=== PATIENT | female | born 1950 | race Caucasian/White ===

== ENCOUNTER 2019-07-02 17:23 | Emergency (ER) | payer MEDICARE, BC, OTHER ==
--- NOTE | 2019-07-02 18:17 | EDM.PDOC ---
ED HPI GENERAL MEDICAL PROBLEM - General Chief Complaint: Respiratory Problem Stated Complaint: SOB Time Seen by Provider: 07/02/19 18:14 Source of Information: Reports: Patient History Limitations: Reports: No Limitations - History of Present Illness INITIAL COMMENTS - FREE TEXT/NARRATIVE: pt has been having sob. She did have a vertual visit and was placed on predisone and she got alot better. She felt like a new person Onset: Gradual Duration: Day(s): Location: Reports: Chest Associated Symptoms: Reports: Cough, Shortness of Breath - Related Data Allergies Allergy/AdvReac Type Severity Reaction Status Date / Time Penicillins Allergy Cannot Verified 07/02/19 18:18 Remember Home Meds: Home Meds Hydrochlorothiazide 25 mg PO DAILY 10/02/15 [History] Albuterol [Ventolin HFA] 1 - 2 puff INH Q4H PRN 07/02/19 [History] Fluticasone Propionate [Flovent HFA 110 MCG] 2 puff INH BID 07/02/19 [History] Past Medical History Cardiovascular History: Reports: Hypertension Respiratory History: Reports: Pneumonia, Recurrent, Sleep Apnea TREE CHIPPER History: Reports: Prolapsed Uterus Other TREE CHIPPER History: tubal ligation - Past Surgical History GI Surgical History: Reports: Colonoscopy Social & Family History - Family History Family Medical History: Noncontributory - Tobacco Use Smoking Status *Q: Never Smoker - Caffeine Use Caffeine Use: Reports: Coffee - Recreational Drug Use Recreational Drug Use: No ED ROS GENERAL - Review of Systems Review Of Systems: See Below Constitutional: Reports: No Symptoms HEENT: Reports: No Symptoms Respiratory: Reports: Shortness of Breath, Cough Cardiovascular: Reports: No Symptoms Endocrine: Reports: No Symptoms GI/Abdominal: Reports: No Symptoms : Reports: No Symptoms Musculoskeletal: Reports: No Symptoms ED EXAM, GENERAL - Physical Exam Exam: See Below Free Text/Narrative:: pt arrived with sob. She had a vertual visit and was placed on flovent and predisone and she felt like a new person. She is out of the predisone and she is no sob. She does not have chest pain. She has had some wheezing problems in the past. She has not had a fever. Exam Limited By: No Limitations General Appearance: Alert, Anxious, Mild Distress Ears: Normal TMs Nose: Normal Inspection Throat/Mouth: Normal Inspection Head: Atraumatic Neck: Normal Inspection Respiratory/Chest: Decreased Breath Sounds Cardiovascular: Regular Rate, Rhythm GI/Abdominal: Soft, Non-Tender (Female) Exam: Deferred Rectal (Female) Exam: Deferred Back Exam: Normal Inspection Extremities: Normal Inspection Neurological: Alert, Oriented, Normal Cognition Psychiatric: Anxious Course - Vital Signs Last Recorded V/S: Last Vital Signs Temp 36.0 C L 07/02/19 17:40 Pulse 67 07/02/19 18:37 Resp 16 07/02/19 17:40 BP 123/71 07/02/19 18:37 Pulse Ox 98 07/02/19 18:37 - Orders/Labs/Meds Orders: Active Orders 24 hr Category Date Time Status RT Aerosol Therapy [RC] ASDIRECTED Care 07/02/19 18:41 Active DD [D-DIMER QUANTITATIVE] [COAG] Stat Lab 07/02/19 18:05 Received PRO B-TYPE NATRIUR PEPT,BNPPRO [CHEM] Urgent Lab 07/02/19 18:05 Received Triamcinolone Acetonide [Kenalog-40] Med 07/02/19 19:12 Ordered 60 mg IM ASDIRECTED PRN Medication Orders Triamcinolone Acetonide (Kenalog-40) 60 mg IM ASDIRECTED PRN PRN Reason: Shortness of Breath Labs: Laboratory Tests 07/02/19 07/02/19 Range/Units 18:05 18:05 WBC 10.3 (4.5-11.0) K/uL RBC 4.26 (3.30-5.50) M/uL Hgb 13.0 (12.0-15.0) g/dL Hct 39.5 (36.0-48.0) % MCV 93 (80-98) fL MCH 31 (27-31) pg MCHC 33 (32-36) % Plt Count 292 (150-400) K/uL Neut % (Auto) 67 H (36-66) % Lymph % (Auto) 21 L (24-44) % [place] % (Auto) 7 H (2-6) % Eos % (Auto) 4 (2-4) % Baso % (Auto) 0 (0-1) % Sodium 142 (140-148) mmol/L Potassium 3.5 L (3.6-5.2) mmol/L Chloride 103 (100-108) mmol/L Carbon Dioxide 30 (21-32) mmol/L Anion Gap 12.5 (5.0-14.0) mmol/L BUN 19 H (7-18) mg/dL Creatinine 0.7 (0.6-1.0) mg/dL Est Cr Clr Drug Dosing 56.78 mL/min Estimated GFR (MDRD) > 60 (>60) Glucose 93 (74-106) mg/dL Calcium 9.6 (8.5-10.1) mg/dL Total Bilirubin 0.6 (0.2-1.0) mg/dL AST 16 (15-37) U/L ALT 22 (12-78) U/L Alkaline Phosphatase 89 (46-116) U/L Total Protein 6.9 (6.4-8.2) g/dL Albumin 3.8 (3.4-5.0) g/dL Globulin 3.1 (2.3-3.5) g/dL Albumin/Globulin Ratio 1.2 (1.2-2.2) Meds: Medications Generic Name Dose Route Start Last Admin Trade Name Freq PRN Reason Stop Dose Admin Triamcinolone Acetonide 60 mg 07/02/19 19:12 Kenalog-40 IM ASDIRECTED PRN Shortness of Breath Discontinued Medications Generic Name Dose Route Start Last Admin Trade Name Freq PRN Reason Stop Dose Admin Albuterol 2.5 mg 07/02/19 18:40 Proventil Neb Soln NEB 07/02/19 18:41 ONETIME ONE Methylprednisolone Sodium Succinate 125 mg 07/02/19 18:39 Solu-Medrol IM 07/02/19 18:40 ONETIME ONE - Re-Assessments/Exams Free Text/Narrative Re-Assessment/Exam: 07/02/19 18:49 pt arrived with sob. She has not had a feveer/ 07/02/19 19:17 chest xray was neg--chronic changes, labs looked good. Pt has good oxgenation. Pt needs to be followed by Dr Curry. She needs her pulmonary funtion studies. Departure - Departure Time of Disposition: 19:18 Disposition: Home, Self-Care 01 Condition: Fair Clinical Impression: Bronchospasm - Discharge Information Referrals: Qian Curry MD [Primary Care Provider] - Forms: ED Department Discharge Care Plan Goals: use albuterol inhaler regularly tid, use th flovent as ordered predisone 10mg 1 tab daily for 1 week--pt had a kenalog injection in ER. appt with Dr Curry in 1 week, not vertual. Sepsis Event Note - Evaluation Sepsis Screening Result: No Definite Risk - Focused Exam Vital Signs: Vital Signs Temp Pulse Resp BP Pulse Ox 07/02/19 18:37 67 123/71 98 07/02/19 17:40 36.0 C L 87 16 151/79 H 97 07/02/19 17:35 36.0 C L 87 16 151/79 H 97 Date Exam was Performed: 07/02/19 Time Exam was Performed: 19:13 - My Orders Last 24 Hours: My Active Orders 07/02/19 18:05 DD [D-DIMER QUANTITATIVE] [COAG] Stat PRO B-TYPE NATRIUR PEPT,BNPPRO [CHEM] Urgent 07/02/19 18:41 RT Aerosol Therapy [RC] ASDIRECTED 07/02/19 19:12 Triamcinolone Acetonide [Kenalog-40] 60 mg IM ASDIRECTED PRN - Assessment/Plan Last 24 Hours: My Active Orders 07/02/19 18:05 DD [D-DIMER QUANTITATIVE] [COAG] Stat PRO B-TYPE NATRIUR PEPT,BNPPRO [CHEM] Urgent 07/02/19 18:41 RT Aerosol Therapy [RC] ASDIRECTED 07/02/19 19:12 Triamcinolone Acetonide [Kenalog-40] 60 mg IM ASDIRECTED PRN
[2019-07-02] MEDS ORDERED: methylPREDNISolone Sodium Succinate 125 MG/2 ML SDV IM ONE (18:39)
[2019-07-02] MEDS ORDERED: Albuterol 0.083% 2.5 MG/3 ML Neb Soln NEB ONE (18:40)
--- NOTE | 2019-07-02 19:05 | CRLCR ---
INDICATION: SOB TECHNIQUE: Chest 2 views. COMPARISON: None. FINDINGS: Cardiovascular and mediastinum: Heart size and vasculature are normal in caliber and appearance. Mediastinum is within normal limits. Lungs and pleural spaces: Lungs are clear. No sign of infiltrate or mass. No sign of pleural effusion. No pneumothorax. Bones and soft tissues: No significant findings. IMPRESSION: Unremarkable chest. Dictated by: Vince Granger MD @ 07/02/2019 19:04:25 (Electronically Signed)
[2019-07-02] MEDS ORDERED: Triamcinolone Acetonide 40 MG/ML 1 ML SDV IM PRN (19:12)
[2019-07-02 19:21] VITALS: BP 124/75; PULSE 73
== END 2019-07-02 19:38 | disposition home or self-care (01) ==
LOC: JP.ED 17:23
DX: J98.01 Acute bronchospasm (principal); I10 Essential (primary) hypertension; Z88.0 Allergy status to penicillin; Z79.899 Other long term (current) drug therapy
CPT/HCPCS: 36415; 71046; 80053; 83880; 85025; 85379; 94640; 96372; 99284; 99285; J3301

== ENCOUNTER 2019-07-22 00:30 | Emergency (ER) | payer MEDICARE, BC, OTHER ==
--- NOTE | 2019-07-22 01:01 | EDM.PDOC ---
ED HPI GENERAL MEDICAL PROBLEM - General Chief Complaint: Chest Pain Stated Complaint: SOB,CHEST PRESSURE Time Seen by Provider: 07/22/19 00:50 Source of Information: Reports: Patient History Limitations: Reports: No Limitations - History of Present Illness INITIAL COMMENTS - FREE TEXT/NARRATIVE: Patient presents from home describing sudden onset central chest heaviness noticed approximately 2300 hrs. on July 20. She had been asleep for approximately 2 hours and awoke suddenly feeling short of breath and also have the chest pressure described. She has sleep apnea and uses CPAP. She has not had a sensation like this before. She has a past history of mitral stenosis which was moderate in its degree several years ago at the time of elective surgery but based on ongoing shortness of breath over the last month or so, an echocardiogram was done which now shows severe mitral stenosis. She had a virtual appointment with an [facility] inventory and pricing associate on Monday, July 18, and after completing an angiogram and transesophageal echocardiogram, she will be referred to the [facility] reportedly. Based on her symptoms when she awoke, she is concerned something new was happening to her heart but does admit that she is extremely worried about everything that has been described to her recently. Onset: Today, Sudden Severity: Mild Improves with: Reports: None Worsens with: Reports: None Context: Reports: Other (Sleeping) Associated Symptoms: Reports: No Other Symptoms Upper Chest Pain Score (Numeric/FACES): 8 - Related Data Allergies Allergy/AdvReac Type Severity Reaction Status Date / Time Penicillins Allergy Cannot Verified 07/22/19 00:44 Remember Home Meds: Home Meds Hydrochlorothiazide 25 mg PO DAILY 10/02/15 [History] Albuterol [Ventolin HFA] 1 - 2 puff INH Q4H PRN 07/02/19 [History] Fluticasone Propionate [Flovent HFA 110 MCG] 2 puff INH BID 07/02/19 [History] Aspirin [Adult Low Dose Aspirin EC] 81 mg PO DAILY 07/22/19 [History] Past Medical History Cardiovascular History: Reports: Angina, Heart Murmur, Hypertension, Other (See Below) Other Cardiovascular History: leaky valve. echo Respiratory History: Reports: Pneumonia, Recurrent, Sleep Apnea Other Respiratory History: c-pap CHILD CARE SUPERVISOR History: Reports: Prolapsed Uterus Other CHILD CARE SUPERVISOR History: tubal ligation - Past Surgical History GI Surgical History: Reports: Colonoscopy Female Surgical History: Reports: Hysterectomy Social & Family History - Family History Family Medical History: Noncontributory - Caffeine Use Caffeine Use: Reports: Coffee ED ROS GENERAL - Review of Systems Review Of Systems: See Below Constitutional: Reports: Weakness. Denies: Fever HEENT: Reports: No Symptoms Respiratory: Reports: Shortness of Breath. Denies: Wheezing Cardiovascular: Reports: Dyspnea on Exertion GI/Abdominal: Reports: No Symptoms : Reports: No Symptoms Musculoskeletal: Reports: No Symptoms Skin: Reports: No Symptoms Psychiatric: Reports: Anxiety ED EXAM, GENERAL - Physical Exam Exam: See Below Free Text/Narrative:: This is an adult female lying supine on the bed in room 10. She has an anxious affect to her voice. Exam Limited By: No Limitations General Appearance: Anxious, Mild Distress Eye Exam: Bilateral Eye: EOMI, Normal Inspection Throat/Mouth: Normal Inspection Head: Atraumatic Neck: Supple, Non-Tender Respiratory/Chest: Lungs Clear, Normal Breath Sounds, Other (Tachypnea) Cardiovascular: Regular Rate, Rhythm, Systolic Murmur Extremities: Normal Inspection, No Pedal Edema Neurological: Alert, Oriented Psychiatric: Anxious EKG INTERPRETATION EKG Date: 07/22/19 Time: 00:32 Rhythm: NSR Rate (Beats/Min): 67 [place]: LAD-Left [place] Deviation P-Wave: Present QRS: Normal ST-T: Normal QT: Normal EKG Interpretation Comments: Sinus rhythm without acute ischemic or infarction changes. Course - Vital Signs Last Recorded V/S: Last Vital Signs Temp 36.2 C 07/22/19 00:40 Pulse 60 07/22/19 02:15 Resp 16 07/22/19 02:15 BP 98/58 L 07/22/19 02:15 Pulse Ox 96 07/22/19 02:15 - Orders/Labs/Meds Orders: Active Orders 24 hr Category Date Time Status EKG Documentation Completion [RC] ASDIRECTED Care 07/22/19 01:06 Active Chest 2V [CR] Stat Exams 07/22/19 01:07 Taken Saline Lock Insert [OM.PC] Routine Oth 07/22/19 01:07 Ordered EKG 12 Lead [EK] Routine Ther 07/22/19 01:06 Ordered Labs: Laboratory Tests 07/22/19 07/22/19 Range/Units 01:20 01:20 WBC 9.6 (4.5-11.0) K/uL RBC 4.27 (3.30-5.50) M/uL Hgb 13.2 (12.0-15.0) g/dL Hct 39.4 (36.0-48.0) % MCV 92 (80-98) fL MCH 31 (27-31) pg MCHC 34 (32-36) % Plt Count 268 (150-400) K/uL Neut % (Auto) 78 H (36-66) % Lymph % (Auto) 11 L (24-44) % [place] % (Auto) 7 H (2-6) % Eos % (Auto) 3 (2-4) % Baso % (Auto) 0 (0-1) % Sodium 141 (140-148) mmol/L Potassium 2.8 L* (3.6-5.2) mmol/L Chloride 102 (100-108) mmol/L Carbon Dioxide 29 (21-32) mmol/L Anion Gap 12.8 (5.0-14.0) mmol/L BUN 24 H (7-18) mg/dL Creatinine 0.8 (0.6-1.0) mg/dL Est Cr Clr Drug Dosing 49.01 mL/min Estimated GFR (MDRD) > 60 (>60) Glucose 115 H (74-106) mg/dL Calcium 9.1 (8.5-10.1) mg/dL Total Bilirubin 0.4 (0.2-1.0) mg/dL AST 19 (15-37) U/L ALT 21 (12-78) U/L Alkaline Phosphatase 88 (46-116) U/L Troponin I < 0.017 (0.000-0.056) ng/mL NT-Pro-B Natriuret Pep 138 H (5-125) pg/mL Total Protein 7.2 (6.4-8.2) g/dL Albumin 3.6 (3.4-5.0) g/dL Globulin 3.6 H (2.3-3.5) g/dL Albumin/Globulin Ratio 1.0 L (1.2-2.2) Meds: Medications Discontinued Medications Generic Name Dose Route Start Last Admin Trade Name Freq PRN Reason Stop Dose Admin Sodium Chloride 10 ml 07/22/19 01:07 07/22/19 01:21 Saline Flush FLUSH 10 ml ASDIRECTED PRN Administration Keep Vein Open - Re-Assessments/Exams Free Text/Narrative Re-Assessment/Exam: 07/22/19 03:09 Patient was seen here earlier in the month. Comparison of today's testing to that visit will be done once completed. Eventually testing was finalized which showed similar results to previously other than a potassium of 2.8. She has continued to take her hydrochlorothiazide in the same dose that she has for many years. She does not recall any dietary changes. I will have her use potassium chloride 20 mEq twice daily for 1 week and she can recheck labs through her primary care team in one week. We reviewed the recent cardiology document regarding further workup of her severe mitral regurgitation. Questions were answered with regard to angiograms and other testing as well as eventual procedure to improve valvular status. She seemed more reassured and was discharged in stable condition. Departure - Departure Time of Disposition: 02:49 Disposition: Home, Self-Care 01 Condition: Good Clinical Impression: Chest pressure, Chronic mitral insufficiency, Other forms of dyspnea, Hypokalemia Instructions: Mitral Valve Regurgitation Referrals: Qian Curry MD [Primary Care Provider] - Forms: ED Department Discharge Additional Instructions: Continue current medications. We will add some potassium chloride 20 meq twice daily for the next week. He would need to recheck your potassium level through your primary care team in one week's time. No other recommended changes to things tonight. Return to ER if feeling worse in anyway. Sepsis Event Note - Evaluation Sepsis Screening Result: No Definite Risk - Focused Exam Vital Signs: Vital Signs Temp Pulse Resp BP Pulse Ox 07/22/19 02:15 60 16 98/58 L 96 07/22/19 01:00 60 18 124/70 95 07/22/19 00:40 36.2 C 70 22 H 151/76 H 99 Date Exam was Performed: 07/22/19 Time Exam was Performed: 03:06 - My Orders Last 24 Hours: My Active Orders 07/22/19 01:06 EKG Documentation Completion [RC] ASDIRECTED EKG 12 Lead [EK] Routine 07/22/19 01:07 Chest 2V [CR] Stat Saline Lock Insert [OM.PC] Routine - Assessment/Plan Last 24 Hours: My Active Orders 07/22/19 01:06 EKG Documentation Completion [RC] ASDIRECTED EKG 12 Lead [EK] Routine 07/22/19 01:07 Chest 2V [CR] Stat Saline Lock Insert [OM.PC] Routine
[2019-07-22] MEDS ORDERED: Sodium Chloride 0.9% 10 ML Syringe FLUSH PRN (01:07)
[2019-07-22 01:23] VITALS: PULSE 60
[2019-07-22 02:16] VITALS: BP 98/58
--- NOTE | 2019-07-23 10:01 | CR ---
CHEST: 2 view CLINICAL HISTORY:SOB, history of mitral stenosis COMPARISON:June 2019 FINDINGS: The heart is mildly enlarged. Pulmonary vascularity is normal. There are atherosclerotic changes in the aorta. There is minimal patchy bibasal densities similar to prior study. There are a few scattered small nodules. These are seen on prior chest CT and are consistent with granulomata. There is mild rightward deviation of the upper trachea due to a large nodule seen on prior CT. Impression: Mild cardiomegaly No acute cardiopulmonary process Previous granulomatous exposure
== END 2019-07-22 02:42 | disposition home or self-care (01) ==
LOC: JP.ED 00:30
DX: I34.0 Nonrheumatic mitral (valve) insufficiency (principal); E87.6 Hypokalemia; R07.89 Other chest pain; I10 Essential (primary) hypertension; Z88.0 Allergy status to penicillin; Z79.82 Long term (current) use of aspirin; Z79.899 Other long term (current) drug therapy
CPT/HCPCS: 36415; 71046; 71046-26; 80053; 83880; 84484; 85025; 93005; 99285-25

== ENCOUNTER 2021-03-08 06:35 | Day surgery (SDC) | payer MEDICARE, BC, OTHER ==
[2021-03-08] MEDS ORDERED: Sodium Chloride 0.9% 1,000 ML IV SCH (07:15)
[2021-03-08] MEDS ORDERED: fentaNYL 100 MCG/2 ML SDV ONE (07:21)
[2021-03-08] MEDS ORDERED: Propofol 200 MG/20 ML SDV ONE (07:21)
[2021-03-08] MEDS ORDERED: Midazolam 1 MG/ML 2 ML SDV ONE (07:21)
[2021-03-08 07:26] LABS: CORONAVIRUS COVID-19 NAA NEGATIVE (NEGATIVE)
[2021-03-08] MEDS ORDERED: ceFAZolin 2 GM in Premix Bag 1 BAG IV ONE (07:37)
--- NOTE | 2021-03-08 08:57 | OR ---
DATE OF PROCEDURE: 03/08/2021 SURGEON: Cheikh Connelly MD PROCEDURE: Colonoscopy. FINDINGS: Diverticulosis, mild, limited to sigmoid colon without evidence of diverticulitis or bleeding. COMPLICATIONS: None. MANAGER BEHAVIORAL: None. ANESTHESIA: MAC. PREOPERATIVE DIAGNOSIS: Screening colonoscopy. POSTOPERATIVE DIAGNOSIS: Screening colonoscopy. RISKS: Risks, benefits, alternatives, and limitations including, but not limited to infection, bleeding, perforation, false positives and false negatives were explained to the patient and she wished to proceed. PROCEDURE IN DETAIL: The patient was placed in left lateral decubitus position. Digital rectal exam was performed without abnormality. Scope was introduced and advanced atraumatically to the ileocecal valve. A photo was taken of this. Scope was brought back through the ascending, transverse, descending colon, and retroflexed. No evidence of old or new blood. No masses. No polyps. No abnormalities on retroflexion. Greater than 8 minutes was spent removing the scope. The patient tolerated the procedure well. Recommend repeat colonoscopy in 10 years. Cheikh Connelly MD /[id number]
[2021-03-08 09:03] VITALS: PULSE 51
[2021-03-08 09:06] VITALS: BP 113/61
== END 2021-03-08 09:21 | disposition home or self-care (01) ==
LOC: JP.SDS 06:35
PROVIDERS: ATTEND Surgery
DX: Z12.11 Encounter for screening for malignant neoplasm of colon (principal); K57.30 Diverticulosis of large intestine without perforation or abscess without bleeding; J45.909 Unspecified asthma, uncomplicated; G47.33 Obstructive sleep apnea (adult) (pediatric); E66.9 Obesity, unspecified; Z88.0 Allergy status to penicillin; Z01.812 Encounter for preprocedural laboratory examination; Z20.822 Contact with and (suspected) exposure to COVID-19
CPT/HCPCS: 0241U; G0121; J0690; J2250; J2704; J3010; J7030